=== PATIENT | female | born 1960 | race Caucasian/White ===

== ENCOUNTER → 2016-08-22 | Day surgery (SDC) | payer OTHER ==
--- NOTE | 2016-08-23 10:58 | PATH ---
Surgical Pathology Report Patient Name: JACI WATTS [facility]. Rec. #: [id number] /Age/Gender: 1960 (Age: 56) / F Account: [id number] Location: [facility] Taken: 08/22/2016 Received: 08/22/2016 Reported: 08/23/2016 Physicians: Rhiannon Quiles MD Specimen(s) Received LEFT BREAST SPECIMEN WITH MASS Clinical History Nonpalpable lesion, suspicious Final Diagnosis LEFT BREAST, MASS, STEREOTACTIC NEEDLE CORE BIOPSY: SCLEROSED FIBROADENOMA. REMAINING BREAST TISSUE WITH FIBROCYSTIC CHANGES INCLUDING USUAL DUCTAL HYPERPLASIA (UDH), COLUMNAR CELL CHANGE, STROMAL FIBROSIS, AND DUCTAL DILATATION. Comment: Recommend correlation with clinical and radiologic findings and follow up as clinically indicated. Electronically Signed Fidel Chappell M.D. Gross Description Received in formalin labeled "left breast with mass," is a 2.4 x 2.2 x 0.3 cm aggregate of multiple bill-yellow, irregular to cylindrical portions of fibroadipose tissue. The formalin is filtered and the specimen is entirely submitted in one cassette. Time to formalin fixation: 5 minutes Total formalin fixation time: Approximately 8 hours. /08/22/201608/22/2016
== END | disposition home or self-care (01) ==
LOC: FMAMMOTONE 07:56
PROVIDERS: ATTEND Family Medicine
PROC: 0HBU3ZX Excision of Left Breast, Percutaneous Approach, Diagnostic (ICD-10-PCS; principal; 2016-08-22)
DX: D24.2 Benign neoplasm of left breast (principal); R92.2 Inconclusive mammogram; N60.12 Diffuse cystic mastopathy of left breast; N60.82 Other benign mammary dysplasias of left breast
CPT/HCPCS: 19081; 88305-TC; A4648